=== PATIENT | female | born 1985 | race Caucasian/White ===

== ENCOUNTER 2017-10-19 04:16 | Inpatient (IN) | payer OTHER ==
[~2017-10-19 04:16] MED LIST: BIRTH CONTROL PILL; BUSPIRONE HCL10 MG PO; QUETIAPINE FUM200 MG PO
[2017-10-19 08:40] VITALS: BP 125/87
[2017-10-19 15:29] VITALS: BP 125/57
[2017-10-20 08:03] VITALS: BP 132/63
[2017-10-20] MEDS ORDERED: PRENATAL VITAM1 EAC6 PO (09:14)
[2017-10-20] MEDS ORDERED: AMOXICILLIN500 MG PO (09:14)
== END 2017-10-20 12:43 | disposition home or self-care (01) | DRG 781 ==
LOC: 1WEST 04:16 → ENRESERV 04:17 → 1WEST 05:56
DX: O99.341 Other mental disorders complicating pregnancy, first trimester (principal); F43.22 Adjustment disorder with anxiety; K08.109 Complete loss of teeth, unspecified cause, unspecified class; F12.90 Cannabis use, unspecified, uncomplicated; Z3A.09 9 weeks gestation of pregnancy; O99.321 Drug use complicating pregnancy, first trimester; F14.20 Cocaine dependence, uncomplicated; R45.851 Suicidal ideations; Z86.19 Personal history of other infectious and parasitic diseases
CPT/HCPCS: 97150 GO; 97165 GO